=== PATIENT | female | born 1955 | race Caucasian/White ===

== ENCOUNTER 2017-10-09 11:32 | Inpatient (IN) | payer OTHER ==
[2017-10-09 12:01] VITALS: BMI 35.8
--- NOTE | 2017-10-09 13:48 | HP ---
CIWA Score - CIWA Score Nausea/Vomitin Muscle Tremors: 4-Moderate,w/Arms Extend Anxiety: 4-Mod. Anxious/Guarded Agitation: 3 Paroxysmal Sweats: No Perspiration Orientation: 1-Uncertain about Date Tacttile Disturbances: 0-None Auditory Disturbances: 0-None Visual Disturbances: 0-None Headache: 0-None Present CIWA-Ar Total Score: 15 Admission ROS BHS - HPI Chief Complaint: "i am tired of the xanax, tired of leaving like this" Allergies/Adverse Reactions: Allergies Allergy/AdvReac Type Severity Reaction Status Date / Time Penicillins Allergy Verified 10/09/17 12:14 History of Present Illness: 62 y/o female with a 8 year history of xanax addiction presents requesting for detox. This is pt's first time at [facility] but completed detox february 2017 at [facility]. Hx of bipolar, depression and Anxiety but denies medical hx. Denies prior or current SI Exam Limitations: No Limitations - Ebola screening Have you traveled outside of the country in the last 21 days: No (N) Have you had contact with anyone from an Ebola affected area: No Have you been sick,other than usual withdrawal symptoms: No Do you have a fever: No - Review of Systems Constitutional: No Symptoms Reported EENT: reports: Recent change in vision (R macular degenaration; wears glasses), Hearing Loss (gradual), Dental Problems (missing teeth) Respiratory: reports: No Symptoms reported Cardiac: reports: No Symptoms Reported, Palpitations (sometimes, because of anxiety) GI: reports: No Symptoms Reported : reports: No Symptoms Reported Musculoskeletal: reports: Back Pain (chronic- from 2 falls) Integumentary: reports: No Symptoms Reported Neuro: reports: Unsteady Gait Endocrine: reports: No Symptoms Reported Hematology: reports: No Symptoms Reported Psychiatric: reports: Mood/Affect Appropiate, Anxious Other Systems: Reviewed and Negative Patient History - Patient Medical History Hx Anemia: Yes Hx Asthma: No Hx Chronic Obstructive Pulmonary Disease (COPD): No Hx Cancer: Yes (Breast CA, had measectomy in 2015) Hx Cardiac Disorders: No Hx Congestive Heart Failure: No Hx Hypertension: No Hx Pacemaker: No HX Cerebrovascular Accident: No Hx Seizures: No Hx Dementia: No Hx Diabetes: No Hx Gastrointestinal Disorders: No Hx Liver Disease: No Hx Genitourinary Disorders: No Hx Sexually Transmitted Disorders: No Hx Renal Disease (ESRD): No Hx Thyroid Disease: No Hx Human Immunodeficiency Virus (HIV): No Hx Hepatitis C: No Hx Depression: Yes (Seroquel, Citalopram) Hx Suicide Attempt: No Hx Bipolar Disorder: Yes (ON Depakote, lamictal, ) Hx Schizophrenia: No - Patient Surgical History Past Surgical History: Yes Hx Neurologic Surgery: No Hx Cataract Extraction: No Hx Cardiac Surgery: No Hx Lung Surgery: No Hx Breast Surgery: Yes (MASTECTOMY -L breast-2014) Hx Breast Biopsy: No Hx Abdominal Surgery: No Hx Appendectomy: No Hx Cholecystectomy: No Hx Genitourinary Surgery: No Hx Section: No Hx Orthopedic Surgery: No Anesthesia Reaction: No - PPD History Previous Implant?: Yes Documented Results: Negative w/o proof Implanted On Prior [facility] Admission?: No PPD to be Administered?: Yes - Reproductive History Patient is a Female of Child Bearing Age (11 -55 yrs old): No - Smoking Cessation Smoking history: Current every day smoker Aproximately how many cigarettes per day: 20 Hx Chewing Tobacco Use: No Initiated information on smoking cessation: Yes 'Breaking Loose' booklet given: 10/09/17 - Substance & Tx. History Hx Alcohol Use: No Hx Substance Use: Yes Substance Use Type: Tranquilizers Hx Substance Use Treatment: Yes - Substances Abused Alprazolam (Xanax) Route: Oral Frequency: Daily Amount used: 14mg (7 tabs) Age of first use: 54 Date of Last Use: 10/09/17 Family Disease History - Family Disease History Family Disease History: Diabetes: Father (), CA: Grandparent (Breast CA) Admission Physical Exam S - Vital Signs Vital Signs: Vital Signs - 24 hr 10/09/17 11:59 Temperature 97.2 F L Pulse Rate 74 Respiratory 21 Rate Blood Pressure 154/98 - Physical General Appearance: Yes: Moderate Distress, Anxious HEENTM: Yes: Within Normal Limits Respiratory: Yes: Lungs Clear, Normal Breath Sounds Neck: Yes: No masses,lesions,Nodules, Trachea in good position Breast: Yes: Breast Exam Deferred Cardiology: Yes: Regular Rate Abdominal: Yes: Non Tender, Distended Genitourinary: Yes: Within Normal Limits Back: Yes: Normal Inspection Musculoskeletal: Yes: Other (unsteady gait) Extremities: Yes: Normal Capillary Refill, Normal Inspection, Normal Range of Motion Neurological: Yes: Alert Integumentary: Yes: Normal Color Lymphatic: Yes: Within Normal Limits - Diagnostic (1) Sedative, hypnotic or anxiolytic dependence, uncomplicated Current Visit: Yes Status: Acute (2) Anxiety Current Visit: Yes Status: Chronic (3) Bipolar 1 disorder, depressed Current Visit: Yes Status: Suspected (4) Dehydration Current Visit: Yes Status: Suspected Cleared for Admission [facility] - Detox or Rehab [facility] Level of Care: Medically Managed Detox Regimen/Protocol: Valium [facility] Breath Alcohol Content Breath Alcohol Content: 0 Urine Pregancy Test - Result Urine Test Results: Negative- NO Line Present Urine Drug Screen - Results Drug Screen Negative: No Urine Drug Screen Results: BZO-Benzodiazepines
[2017-10-09] MEDS ORDERED: MAGNESIUM HYDROX 2400MG/30ML ORAL SUSPENSION 30 ML CUP PO PRN (14:21)
[2017-10-09] MEDS ORDERED: IBUPROFEN 400 MG TABLET (FP) PO PRN (14:21)
[2017-10-09] MEDS ORDERED: guaiFENesin/D-METHORPHAN HB 10 ML UNIT-DOSE CUPS PO PRN (14:21)
[2017-10-09] MEDS ORDERED: MAGNESIUM CITRATE 300 ML BOTTLE PO PRN (14:21)
[2017-10-09] MEDS ORDERED: ACETAMINOPHEN 325 MG TABLET (FP) PO PRN (14:21)
[2017-10-09] MEDS ORDERED: LOPERAMIDE HCL 2 MG CAPSULE PO PRN (14:21)
[2017-10-09] MEDS ORDERED: P-EPHED 60MG/TRIPROLIDI 2.5MG TABLET PO PRN (14:21)
[2017-10-09] MEDS ORDERED: MAG HYDROX/AL HYDROX/SIMETH 30 ML UNIT-DOSE CUP PO PRN (14:21)
[2017-10-09] MEDS ORDERED: MENTHOL/PHENOL 1 EACH UD MM PRN (14:21)
[2017-10-09] MEDS ORDERED: diazePAM 5 MG TABLET PO ONE (14:21)
[2017-10-09] MEDS ORDERED: NICOTINE POLACRILEX 2 MG GUM BC PRN (14:21)
[2017-10-09] MEDS: diazePAM 5 MG TABLET PO SCH ×2 (15:16→22:17)
[2017-10-09] MEDS: NICOTINE 21 MG/24 HOURS TOPICAL PATCH TD SCH (15:17)
[2017-10-09 16:01] LABS: URINE APPEARANCE CLEAR; URINE BILIRUBIN NEGATIVE (<2.0 mg/dL); URINE COLOR YELLOW; URINE GLUCOSE (UA) NEGATIVE (NEGATIVE); URINE KETONE TRACE (NEGATIVE); URINE LEUK ESTERASE TRACE (NEGATIVE); URINE NITRITE NEGATIVE (NEGATIVE); URINE PROTEIN NEGATIVE (NEGATIVE); URINE UROBILINOGEN NEGATIVE mg/dL (0.2-1.0)
[2017-10-09 16:52] LABS: EPI CELLS RARE /HPF (FEW)
--- NOTE | 2017-10-09 20:25 | PN ---
[facility] Progress Note Note: Psychiatrist community service organization director note: Patient admitrted to [facility] for detox, as per nursing reports his preadmission medications are: Seroquel 50mg po bid Depakote 500mg po tid Lamictal 25mg po bid Celexa 20mg poqd Patient started on preadmission medications, Depakote l blood level in am ordered as well.
[2017-10-09] MEDS ORDERED: MELATONIN 5 MG TABLETS PO PRN (22:00)
[2017-10-09] MEDS: THIAMINE HCL 100 MG TABLET (FP) PO SCH (22:16)
[2017-10-09] MEDS: DIVALPROEX SODIUM 500 MG TABLET E.C. PO SCH (22:16)
[2017-10-09] MEDS: lamoTRIgine 25 MG TABLET PO SCH (22:16)
[2017-10-09] MEDS: QUEtiapine FUMARATE 50 MG TABLET PO SCH (22:17)
[2017-10-10] MEDS: diazePAM 5 MG TABLET PO SCH ×3 (05:19→21:48)
[2017-10-10] MEDS: DIVALPROEX SODIUM 500 MG TABLET E.C. PO SCH ×3 (05:19→21:48)
[2017-10-10] MEDS: diazePAM 5 MG TABLET PO PRN ×3 (07:48→17:29)
--- NOTE | 2017-10-10 09:53 | CONSULT ---
[facility] Psychiatric Consult - Data Date of interview: 10/10/17 Admission source: [facility] Identifying data: This is 62 years old female, mother of four, lioving at Longterm, with a 8 year history of xanax and Nicotine addiction presents at [facility] requesting for detoxification, reports withdrawal symptoms. Patient reports history of Bipolar Disorder with most eent psychiatric admission on about 8 years ago. Substance Abuse History: - Smoking Cessation. Smoking history: Current every day smoker. Aproximately how many cigarettes per day: 20. Hx Chewing Tobacco Use: No. Initiated information on smoking cessation: Yes. 'Breaking Loose' booklet given: 10/09/17. - Substance & Tx. History. Hx Alcohol Use: No. Hx Substance Use: Yes. Substance Use Type: Tranquilizers. Hx Substance Use Treatment: Yes. - Substances Abused. Alprazolam (Xanax). Route: Oral. Frequency: Daily. Amount used: 14mg (7 tabs). Age of first use: 54. Date of Last Use: 10/09/17 Medical History: Denies significant mecical problems Psychiatric History: Patient reports history of Bipolar Disorder with most eent psychiatric admission on about 8 years ago, denies suicidal and homicidal histopry. Reports taking prior, to admission: Depakote 500mg po TID. Seroquel 50mg po bid. Lamictal 25mg po bid. Celexa 20mg poqd Physical/Sexual Abuse/Trauma History: Denies Additional Comment: Depakote 500mg po TID. Seroquel 50mg po bid. Lamictal 25mg po bid. Celexa 20mg poqd Mental Status Exam - Mental Status Exam Alert and Oriented to: Person Cognitive Function: Fair Patient Appearance: Well Groomed Mood: Apprehensive Affect: Mood Congruent Patient Behavior: Cooperative Speech Pattern: Appropriate Voice Loudness: Normal Thought Process: Goal Oriented Thought Disorder: Being Controlled Hallucinations: Denies Suicidal Ideation: Denies Homicidal Ideation: Denies Insight/Judgement: Fair Sleep: Difficulty falling asleep Appetite: Weight loss Muscle strength/Tone: Mild Hypotonicity Gait/Station: Deferred Additional Comments: Depakote 500mg po TID. Seroquel 50mg po bid. Lamictal 25mg po bid. Celexa 20mg poqd Psychiatric Findings - Problem List ([place] 1, 2,3) (1) Nicotine dependence Current Visit: Yes Status: Acute (2) Sedative, hypnotic or anxiolytic dependence, uncomplicated Current Visit: Yes Status: Acute (3) Bipolar 1 disorder, depressed Current Visit: Yes Status: Suspected - Initial Treatment Plan Initial Treatment Plan: Depakote 500mg po TID. Seroquel 50mg po bid. Lamictal 25mg po bid. Celexa 20mg poqd
--- NOTE | 2017-10-10 10:07 | PN ---
[facility] Progress Note Note: Psychiatrixt telephone recorder notes: On 10/09/17 as per nursing report loi was admirtted to [facility] for detoxification after abusing Xanax and Nicotine. Patient suffers Bipolar diusorder and taking prior to admission: Depakote 500mg po TID Seroquel 50mg po bid Lamictal 25mg po bid Celexa 20mg poqd Medication order was issues, in addition Depakot blood level ion am was ordered.
--- NOTE | 2017-10-10 10:14 | PN ---
S CIWA - CIWA Score Nausea/Vomitin Muscle Tremors: 3 Anxiety: 3 Agitation: 2 Paroxysmal Sweats: 1-Minimal Palms Moist Orientation: 0-Oriented Tacttile Disturbances: 1-Very Mild Itch/Numbness Auditory Disturbances: 1-Very Mild Visual Disturbances: 0-None Headache: 2-Mild CIWA-Ar Total Score: 16 BHS Progress Note (SOAP) Subjective: ALERT,IRRITABLE,ANXIOUS,INTERRUPTED SLEEP,TREMOR, Objective: 10/10/17 10:11 Vital Signs Temperature 95.9 F L 10/10/17 09:50 Pulse Rate 86 10/10/17 09:50 Respiratory Rate 17 10/10/17 09:50 Blood Pressure 125/86 10/10/17 09:50 O2 Sat by Pulse Oximetry (%) EKG SINUS RHYTHM WITH FIRST DEGREE AV BLOCK PROLONG QT 396/442 NO CHEST PAIN,NO SOB,NO DIZZINESS Laboratory Last Values Urine Color Yellow 10/09/17 14:43 Urine Appearance Clear 10/09/17 14:43 Urine pH 7.0 (5.0-8.0) 10/09/17 14:43 Ur Specific [place] 1.014 (1.001-1.035) 10/09/17 14:43 Urine Protein Negative (NEGATIVE) 10/09/17 14:43 Urine Glucose (UA) Negative (NEGATIVE) 10/09/17 14:43 Urine Ketones Trace (NEGATIVE) H 10/09/17 14:43 Urine Blood 1+ (NEGATIVE) H 10/09/17 14:43 Urine Nitrite Negative (NEGATIVE) 10/09/17 14:43 Urine Bilirubin Negative (<2.0 mg/dL) 10/09/17 14:43 Urine Urobilinogen Negative mg/dL (0.2-1.0) 10/09/17 14:43 Ur Leukocyte Esterase Trace (NEGATIVE) 10/09/17 14:43 Urine WBC (Auto) 1 /hpf (3-5) 10/09/17 14:43 Urine RBC (Auto) <1 /hpf (0-3) 10/09/17 14:43 Ur Epithelial Cells Rare /HPF (FEW) 10/09/17 14:43 Assessment: 10/10/17 10:13 WITHDRAWAL SYMPTOM Plan: CONTINUE DETOX
[2017-10-10] MEDS: PRENATAL VITAMINS W/ FOLIC ACID TABLET (FP) PO SCH (10:38)
[2017-10-10] MEDS: QUEtiapine FUMARATE 50 MG TABLET PO SCH ×2 (10:38→21:48)
[2017-10-10] MEDS: lamoTRIgine 25 MG TABLET PO SCH ×2 (10:38→21:48)
[2017-10-10] MEDS: CITALOPRAM HYDROBROMIDE 20 MG TABLET (FP) PO SCH (10:38)
[2017-10-10] MEDS: NICOTINE 21 MG/24 HOURS TOPICAL PATCH TD SCH (10:39)
[2017-10-10 10:52] LABS: CHLORIDE 103 mmol/L (98-107); POTASSIUM 4.6 mmol/L (3.5-5.1); SODIUM 137 mmol/L (136-145)
[2017-10-10 10:57] LABS: HEMOGLOBIN 16.3 GM/dL (10.7-15.3); MCH 33.1 pg (25.7-33.7); MCHC 34.6 g/dl (32.0-36.0); MEAN CELL VOLUME 95.6 fl (80-96); MEAN PLT VOLUME 7.7 fl (7.5-11.1); PLATELET COUNT 236 K/MM3 (134-434); RBC 4.91 M/mm3 (3.60-5.2); RDW 13.2 % (11.6-15.6); WHITE BLOOD COUNT 6.3 K/mm3 (4.0-10.0)
[2017-10-10 11:00] LABS: ALBUMIN 3.6 g/dl (3.4-5.0); ALK PHOS 57 U/L (45-117); ANION GAP 6 (8-16); BILIRUBIN,TOTAL 0.4 mg/dL (0.2-1.0); BLOOD UREA NITROGEN 19 mg/dL (7-18); CALCIUM 8.7 mg/dL (8.5-10.1); CO2 28 mmol/L (21-32); CREATININE 0.8 mg/dL (0.55-1.02); GLUCOSE,RANDOM 133 mg/dL (74-106); SGOT/AST 10 U/L (15-37); SGPT/ALT 20 U/L (12-78); TOT PROT 6.9 g/dl (6.4-8.2)
--- NOTE | 2017-10-10 18:07 | EKG ---
Test Reason : Blood Pressure : / mmHG Vent. Rate : 075 BPM Atrial Rate : 075 BPM P-R Int : 346 ms QRS Dur : 076 ms QT Int : 396 ms P-R-T Axes : 049 -22 -26 degrees QTc Int : 442 ms SINUS RHYTHM WITH 1ST DEGREE A-V BLOCK SEPTAL INFARCT (CITED ON OR BEFORE 09-OCT-2017) ABNORMAL ECG WHEN COMPARED WITH ECG OF 09-OCT-2017 15:51, NO SIGNIFICANT CHANGE WAS FOUND Confirmed by LEE VIEYRA MD ([id number]) on 10/10/2017 6:07:28 PM Referred By: Confirmed By:LEE VIEYRA MD
[2017-10-10] MEDS: THIAMINE HCL 100 MG TABLET (FP) PO SCH (21:50)
--- NOTE | 2017-10-10 23:53 | EKG ---
Test Reason : Blood Pressure : / mmHG Vent. Rate : 071 BPM Atrial Rate : 071 BPM P-R Int : 286 ms QRS Dur : 078 ms QT Int : 408 ms P-R-T Axes : 063 -22 -08 degrees QTc Int : 443 ms SINUS RHYTHM WITH 1ST DEGREE A-V BLOCK SEPTAL INFARCT , AGE UNDETERMINED ABNORMAL ECG NO PREVIOUS ECGS AVAILABLE Confirmed by LEE VIEYRA MD ([id number]) on 10/10/2017 11:52:40 PM Referred By: Confirmed By:LEE VIEYRA MD
[2017-10-11] MEDS: hydrOXYzine PAMOATE 50 MG CAPSULE (FP) PO PRN (02:01)
[2017-10-11] MEDS: diazePAM 5 MG TABLET PO PRN ×4 (04:07→18:07)
[2017-10-11] MEDS: DIVALPROEX SODIUM 500 MG TABLET E.C. PO SCH ×3 (07:29→22:15)
--- NOTE | 2017-10-11 09:46 | PN ---
S CIWA - CIWA Score Nausea/Vomitin Muscle Tremors: 3 Anxiety: 3 Agitation: 3 Paroxysmal Sweats: 1-Minimal Palms Moist Orientation: 0-Oriented Tacttile Disturbances: 1-Very Mild Itch/Numbness Auditory Disturbances: 1-Very Mild Visual Disturbances: 0-None Headache: 2-Mild CIWA-Ar Total Score: 17 BHS Progress Note (SOAP) Subjective: ALERT,IRRITABLE,ANXIOUS,INTERRUPTED SLEEP,TREMOR Objective: 10/11/17 09:45 Vital Signs Temperature 96.9 F L 10/11/17 09:08 Pulse Rate 77 10/11/17 09:08 Respiratory Rate 18 10/11/17 09:08 Blood Pressure 132/75 10/11/17 09:08 O2 Sat by Pulse Oximetry (%) Vital Signs Temperature 96.9 F L 10/11/17 09:08 Pulse Rate 77 10/11/17 09:08 Respiratory Rate 18 10/11/17 09:08 Blood Pressure 132/75 10/11/17 09:08 O2 Sat by Pulse Oximetry (%) 10/11/17 09:45 Laboratory Last Values WBC 6.3 K/mm3 (4.0-10.0) 10/10/17 07:00 RBC 4.91 M/mm3 (3.60-5.2) 10/10/17 07:00 Hgb 16.3 GM/dL (10.7-15.3) H 10/10/17 07:00 Hct 47.0 % (32.4-45.2) H 10/10/17 07:00 MCV 95.6 fl (80-96) 10/10/17 07:00 MCH 33.1 pg (25.7-33.7) 10/10/17 07:00 MCHC 34.6 g/dl (32.0-36.0) 10/10/17 07:00 RDW 13.2 % (11.6-15.6) 10/10/17 07:00 Plt Count 236 K/MM3 (134-434) 10/10/17 07:00 MPV 7.7 fl (7.5-11.1) 10/10/17 07:00 Sodium 137 mmol/L (136-145) 10/10/17 07:00 Potassium 4.6 mmol/L (3.5-5.1) 10/10/17 07:00 Chloride 103 mmol/L (98-107) 10/10/17 07:00 Carbon Dioxide 28 mmol/L (21-32) 10/10/17 07:00 Anion Gap 6 (8-16) L 10/10/17 07:00 BUN 19 mg/dL (7-18) H 10/10/17 07:00 Creatinine 0.8 mg/dL (0.55-1.02) 10/10/17 07:00 Creat Clearance w eGFR > 60 (>60) 10/10/17 07:00 Random Glucose 133 mg/dL (74-106) H 10/10/17 07:00 Calcium 8.7 mg/dL (8.5-10.1) 10/10/17 07:00 Total Bilirubin 0.4 mg/dL (0.2-1.0) 10/10/17 07:00 AST 10 U/L (15-37) L 10/10/17 07:00 ALT 20 U/L (12-78) 10/10/17 07:00 Alkaline Phosphatase 57 U/L (45-117) 10/10/17 07:00 Total Protein 6.9 g/dl (6.4-8.2) 10/10/17 07:00 Albumin 3.6 g/dl (3.4-5.0) 10/10/17 07:00 Urine Color Yellow 10/09/17 14:43 Urine Appearance Clear 10/09/17 14:43 Urine pH 7.0 (5.0-8.0) 10/09/17 14:43 Ur Specific [place] 1.014 (1.001-1.035) 10/09/17 14:43 Urine Protein Negative (NEGATIVE) 10/09/17 14:43 Urine Glucose (UA) Negative (NEGATIVE) 10/09/17 14:43 Urine Ketones Trace (NEGATIVE) H 10/09/17 14:43 Urine Blood 1+ (NEGATIVE) H 10/09/17 14:43 Urine Nitrite Negative (NEGATIVE) 10/09/17 14:43 Urine Bilirubin Negative (<2.0 mg/dL) 10/09/17 14:43 Urine Urobilinogen Negative mg/dL (0.2-1.0) 10/09/17 14:43 Ur Leukocyte Esterase Trace (NEGATIVE) 10/09/17 14:43 Urine WBC (Auto) 1 /hpf (3-5) 10/09/17 14:43 Urine RBC (Auto) <1 /hpf (0-3) 10/09/17 14:43 Ur Epithelial Cells Rare /HPF (FEW) 10/09/17 14:43 Valproic Acid 59.845 ug/ml (50-100) 10/10/17 07:00 RPR Titer Nonreactive (NONREACTIVE) 10/10/17 07:00 Assessment: 10/11/17 09:45 WITHDRAWAL SYMPTOM Plan: CONTINUE DETOX
[2017-10-11] MEDS: QUEtiapine FUMARATE 50 MG TABLET PO SCH ×2 (11:01→22:15)
[2017-10-11] MEDS: CITALOPRAM HYDROBROMIDE 20 MG TABLET (FP) PO SCH (11:01)
[2017-10-11] MEDS: lamoTRIgine 25 MG TABLET PO SCH ×2 (11:01→22:14)
[2017-10-11] MEDS: PRENATAL VITAMINS W/ FOLIC ACID TABLET (FP) PO SCH (11:01)
[2017-10-11] MEDS: diazePAM 5 MG TABLET PO SCH ×2 (11:02→22:14)
[2017-10-11] MEDS: NICOTINE 21 MG/24 HOURS TOPICAL PATCH TD SCH (11:02)
[2017-10-11] MEDS: THIAMINE HCL 100 MG TABLET (FP) PO SCH (22:15)
[2017-10-12] MEDS: diazePAM 5 MG TABLET PO PRN (06:45)
[2017-10-12] MEDS: DIVALPROEX SODIUM 500 MG TABLET E.C. PO SCH ×3 (06:45→22:14)
[2017-10-12] MEDS: hydrOXYzine PAMOATE 50 MG CAPSULE (FP) PO PRN ×2 (08:13→16:13)
--- NOTE | 2017-10-12 10:12 | PN ---
BHS Progress Note (SOAP) Subjective: ALERT,IRRITABLE,ANXIOUS,INTERRUPTED SLEEP Objective: 10/12/17 10:11 Vital Signs Temperature 98.1 F 10/12/17 09:09 Pulse Rate 93 H 10/12/17 09:09 Respiratory Rate 16 10/12/17 09:09 Blood Pressure 115/67 10/12/17 09:09 O2 Sat by Pulse Oximetry (%) Assessment: 10/12/17 10:12 WITHDRAWAL SYMPTOM Plan: CONTINUE DETOX,DISCHARGE IN AM
[2017-10-12] MEDS: QUEtiapine FUMARATE 50 MG TABLET PO SCH ×2 (10:15→22:15)
[2017-10-12] MEDS: CITALOPRAM HYDROBROMIDE 20 MG TABLET (FP) PO SCH (10:15)
[2017-10-12] MEDS: PRENATAL VITAMINS W/ FOLIC ACID TABLET (FP) PO SCH (10:15)
[2017-10-12] MEDS: diazePAM 5 MG TABLET PO SCH ×2 (10:15→22:14)
[2017-10-12] MEDS: NICOTINE 21 MG/24 HOURS TOPICAL PATCH TD SCH (10:15)
[2017-10-12] MEDS: lamoTRIgine 25 MG TABLET PO SCH ×2 (10:15→22:14)
--- NOTE | 2017-10-12 18:04 | PN ---
Psychiatric Progress Note Vital Signs: Vital Signs Period Temp Pulse Resp BP Sys/Meléndez Pulse Ox Last 24 Hr 97.6 F-98.2 F 68-104 16-18 114-132/62-80 Date of Session: 10/12/17 Chief Complaint:: " I am anxious.I need some ativan to calm down ". HPI: Day 4 of detoxification treatment for benzodiazepine dependence.Patient is a 62 y/o female who is also addressing bipolar disorder.Hospital course has remained benign until Ms Resendiz started presenting with anxiety symptoms and requested a meeting with the covering psychiatrist. ROS: Unremarkable.Patient is cognitively sound,ambulatory,independent,visible on the unit and clearly NOT presenting any sign of distress. Current Medications: Active Medications Generic Name Dose Route Start Last Admin Trade Name Freq PRN Reason Stop Dose Admin Acetaminophen 650 mg 10/09/17 14:21 Tylenol - PO Q4H PRN FEVER Al Hydroxide/Mg Hydroxide 30 ml 10/09/17 14:21 Mylanta Oral Suspension - PO Q6H PRN DYSPEPSIA Citalopram Hydrobromide 20 mg 10/10/17 10:00 10/12/17 10:15 Celexa - PO 20 mg DAILY RAVI Administration Diazepam 5 mg 10/11/17 10:00 10/12/17 10:15 Valium - PO 10/12/17 22:01 5 mg BID RAVI Administration Diazepam 5 mg 10/13/17 10:00 Valium - PO 10/13/17 10:01 DAILY RAVI Divalproex Sodium 500 mg 10/09/17 22:00 10/12/17 14:55 Depakote - PO 500 mg TID RAVI Administration Eucalyptus/Menthol/Phenol/Sorbitol 1 each 10/09/17 14:21 Cepastat Lozenge - MM Q4H PRN SORE THROAT Guaifenesin 10 ml 10/09/17 14:21 Robitussin Dm - PO Q6H PRN COUGH Hydroxyzine Pamoate 50 mg 10/09/17 14:21 10/12/17 16:13 Vistaril - PO 50 mg Q4H PRN Administration AGITATION Ibuprofen 400 mg 10/09/17 14:21 Motrin - PO Q6H PRN PAIN LEVEL 4-6 Lamotrigine 25 mg 10/09/17 22:00 10/12/17 10:15 Lamictal - PO 25 mg BID RAVI Administration Loperamide HCl 4 mg 10/09/17 14:21 Imodium - PO Q6H PRN DIARRHEA Magnesium Citrate 300 ml 10/09/17 14:21 Citroma - PO Q48H PRN CONSTIPATION Magnesium Hydroxide 30 ml 10/09/17 14:21 Milk Of Magnesia - PO DAILY PRN CONSTIPATION Melatonin 5 mg 10/09/17 22:00 Melatonin PO HS PRN INSOMNIA Nicotine 21 mg 10/09/17 14:30 10/12/17 10:15 Nicoderm Patch - TD Not Given DAILY RAVI Nicotine Polacrilex 2 mg 10/09/17 14:21 Nicorette Gum - BC Q2H PRN NICOTINE REPLACEMENT RX Multivit/Folic Acid/Iron 1 tab 10/10/17 10:00 10/12/17 10:15 Vitamins (Sjr) - PO 1 tab DAILY RAVI Administration Pseudoephedrine/Triprolidine 1 combo 10/09/17 14:21 Actifed - PO TID PRN NASAL CONGESTION Quetiapine Fumarate 50 mg 10/09/17 22:00 10/12/17 10:15 Seroquel - PO 50 mg BID RAVI Administration Thiamine HCl 100 mg 10/09/17 22:00 10/11/17 22:15 Vitamin B1 - PO 100 mg HS RAVI Administration Medication(s) Change(s): No clinical justification for changes.Medications reviewed.Noted combination of lamotrigine + valproate.The patient is made aware of risk/benefits of these drugs.Informed, in particular, of the potential for Danielle-Armando syndrome and advised to report any occurrence of skin rash to staff.Patient agrees to follow that recommendation.Other issues were also revisited,such as the risk of hair loss,blood dyscrasias,liver dysfunction, weight gain and oversedation.Ms Martín leonwledges good tolerability to this regimen.Medications were verified via review of recent pharmacy claims (09/30 + + 10/06/17 at [facility]).Scripts for alprazolam confirmed. Current Side Effect: No Lab tests ordered: No Lab tests reviewed: Yes (valproic acid level = 59.8 (within normal range) ; LFTS /CBC: unremarkable) Provider note:: Chart reviewed.Dr Ayoub's progress notes are read and appreciated.Met with patient. No acute issues.Ms Resendiz is clearly medication- seeking.Unambiguously in quest of addition of lorazepam or alprazolam to the regimen.Symptoms (shaking,trembling,pacing) stopped as soon as it became clear to the patient that her request will NOT be gratified.Instead,Ms Resendiz is provided with teachings about ways to control anxiety symptoms,available medications (other than benzodiazepines) and the risks inherent to overutilization of sedative/anxiolytic drugs.Patient is receptive to the information.Calmed down and returned to her daily routine.Benign hospital course.The patient is at her baseline. Mental Status Exam - Mental Status Exam Alert and Oriented to: Time, Place, Person Cognitive Function: Good Patient Appearance: Well Groomed Mood: Anxious (mildly apprehensive) Affect: Appropriate, Normal Range Patient Behavior: Appropriate, Cooperative Speech Pattern: Clear, Appropriate Voice Loudness: Normal Thought Process: Intact, Goal Oriented Thought Disorder: Not Present Hallucinations: Denies Suicidal Ideation: Denies Homicidal Ideation: Denies Insight/Judgement: Fair Sleep: Well Appetite: Good Muscle strength/Tone: Normal Gait/Station: Normal Psychiatric Treatment Plan - Problem List (1) Sedative, hypnotic or anxiolytic dependence, uncomplicated Comment: . (2) Nicotine dependence Comment: .
[2017-10-12] MEDS: THIAMINE HCL 100 MG TABLET (FP) PO SCH (22:15)
[2017-10-13] MEDS: DIVALPROEX SODIUM 500 MG TABLET E.C. PO SCH (05:09)
--- NOTE | 2017-10-13 08:19 | PN ---
S Progress Note (SOAP) Subjective: ALERT,NO COMPLAINT Objective: 10/13/17 08:18 Vital Signs Temperature 97.9 F 10/13/17 05:57 Pulse Rate 67 10/13/17 05:57 Respiratory Rate 18 10/13/17 05:57 Blood Pressure 145/64 10/13/17 05:57 O2 Sat by Pulse Oximetry (%) Assessment: 10/13/17 08:18 DETOX COMPLETED,NO WITHDRAWAL SYMPTOM Plan: DISCHARGE TODAY,FOLLOW UP WITH AFTER CARE PROGRAM ARRANGEMENT
--- NOTE | 2017-10-13 08:25 | DS ---
[facility] Detox Discharge Summary Admission Date: 10/09/17 Discharge Date: 10/13/17 - History Present History: Sedative Dependence Additional Comments: FOLLOW UP WITH AFTER CARE PROGRAM ARRANGEMENT Pertinent Past History: BIPOLAR 1 DISORDER ANXIETY - Physical Exam Results Vital Signs: Vital Signs Temperature 97.9 F 10/13/17 05:57 Pulse Rate 67 10/13/17 05:57 Respiratory Rate 18 10/13/17 05:57 Blood Pressure 145/64 10/13/17 05:57 O2 Sat by Pulse Oximetry (%) Pertinent Admission Physical Exam Findings: WITHDRAWAL SIGNS AND SYMPTOM - Treatment Hospital Course: Detox Protocol Followed, Detoxed Safely, Responded well, Discharged Condition Good Patient has Accepted a Rehab Referral to: DECLINED - Medication Discharge Medications: Ambulatory Orders Citalopram Hydrobromide [Citalopram HBr] 20 mg PO DAILY 10/09/17 Divalproex [Depakote -] 500 mg PO TID 10/09/17 Lamotrigine [Lamictal -] 25 mg PO BID 10/09/17 Quetiapine Fumarate [Seroquel -] 50 mg PO BID 10/09/17 - Diagnosis (1) Sedative, hypnotic or anxiolytic dependence, uncomplicated Current Visit: Yes Status: Acute (2) Nicotine dependence Current Visit: Yes Status: Acute (3) Anxiety Current Visit: Yes Status: Chronic (4) Bipolar 1 disorder, depressed Current Visit: Yes Status: Suspected (5) Dehydration Current Visit: Yes Status: Suspected - AMA Did Patient Leave Against Medical Advice: No
[2017-10-13] MEDS: PRENATAL VITAMINS W/ FOLIC ACID TABLET (FP) PO SCH (09:12)
[2017-10-13] MEDS: lamoTRIgine 25 MG TABLET PO SCH (09:12)
[2017-10-13] MEDS: QUEtiapine FUMARATE 50 MG TABLET PO SCH (09:12)
[2017-10-13] MEDS: CITALOPRAM HYDROBROMIDE 20 MG TABLET (FP) PO SCH (09:12)
[2017-10-13 09:13] VITALS: BP 136/74; PULSE 111; TEMP 97.7
[2017-10-13] MEDS ORDERED: diazePAM 5 MG TABLET PO SCH (10:00)
== END 2017-10-13 09:12 | disposition home or self-care (01) | DRG 897 ==
LOC: YASAS 11:32 → Y6N 14:26
PROVIDERS: ADMIT Surgery; ATTEND Surgery
PROC: HZ2ZZZZ Detoxification Services for Substance Abuse Treatment (ICD-10-PCS; principal; 2017-10-09)
DX: F13.230 Sedative, hypnotic or anxiolytic dependence with withdrawal, uncomplicated (principal); F31.89 Other bipolar disorder; F17.210 Nicotine dependence, cigarettes, uncomplicated; F41.9 Anxiety disorder, unspecified; E86.0 Dehydration
CPT/HCPCS: 36415; 80053; 80164; 81003; 81015; 85027; 86593; 93005; 93010

== ENCOUNTER 2020-07-29 12:40 | Inpatient (IN) | payer OTHER ==
[2020-07-29 15:09] VITALS: BMI 32.3
[2020-07-29] MEDS ORDERED: NICOTINE POLACRILEX 2 MG GUM BUC PRN (15:09)
[2020-07-29] MEDS ORDERED: BISMUTH SUBSALICYLATE 524 MG/30 ML UD PO PRN (15:09)
[2020-07-29] MEDS ORDERED: ONDANSETRON *ODT* 4 MG TABLET SL PRN (15:09)
[2020-07-29] MEDS ORDERED: ACETAMINOPHEN 325 MG TABLET (FP) PO PRN (15:09)
[2020-07-29] MEDS ORDERED: MENTHOL/PHENOL 1 EACH UD MM PRN (15:09)
[2020-07-29] MEDS ORDERED: MAGNESIUM CITRATE 300 ML BOTTLE PO PRN (15:09)
[2020-07-29] MEDS ORDERED: MAG HYDROX/AL HYDROX/SIMETH 30 ML UNIT-DOSE CUP PO PRN (15:09)
[2020-07-29] MEDS ORDERED: MAGNESIUM HYDROX 2400MG/30ML ORAL SUSPENSION 30 ML CUP PO PRN (15:09)
[2020-07-29] MEDS ORDERED: diazePAM 5 MG TABLET ONE (16:12)
[2020-07-29] MEDS: diazePAM 5 MG TABLET PO SCH ×2 (16:15→23:09)
[2020-07-29] MEDS: METHOCARBAMOL 500 MG TABLET PO PRN (17:23)
[2020-07-29] MEDS: hydrOXYzine PAMOATE 25 MG CAPSULE (FP) PO SCH ×2 (17:23→23:08)
[2020-07-29] MEDS: PRENATAL VITAMINS W/ FOLIC ACID TABLET (FP) PO SCH (17:51)
[2020-07-29] MEDS: diazePAM 5 MG TABLET PO PRN (18:10)
[2020-07-29] MEDS: DIVALPROEX SODIUM 500 MG TABLET E.C. PO SCH (23:07)
[2020-07-29] MEDS: THIAMINE HCL 100 MG TABLET (FP) PO SCH (23:07)
[2020-07-29] MEDS: MELATONIN 5 MG TABLETS PO SCH (23:07)
[2020-07-29] MEDS: risperiDONE 1 MG TABLET PO SCH (23:08)
[2020-07-30] MEDS: diazePAM 5 MG TABLET PO SCH ×4 (05:11→22:03)
[2020-07-30] MEDS: risperiDONE 1 MG TABLET PO SCH ×3 (05:11→22:03)
[2020-07-30] MEDS: hydrOXYzine PAMOATE 25 MG CAPSULE (FP) PO SCH ×5 (05:11→22:03)
[2020-07-30] MEDS: DIVALPROEX SODIUM 500 MG TABLET E.C. PO SCH ×3 (05:11→22:03)
[2020-07-30] MEDS: IBUPROFEN 400 MG TABLET (FP) PO PRN ×2 (05:15→16:07)
[2020-07-30] MEDS: PRENATAL VITAMINS W/ FOLIC ACID TABLET (FP) PO SCH (10:09)
[2020-07-30 10:28] LABS: HEMATOCRIT 41.3 % (32.4-45.2); HEMOGLOBIN 14.4 GM/dL (10.7-15.3); MCH 34.2 pg (25.7-33.7); MCHC 34.8 g/dl (32.0-36.0); MEAN CELL VOLUME 98.3 fl (80-96); MEAN PLT VOLUME 7.2 fl (7.5-11.1); PLATELET COUNT 290 K/MM3 (134-434); RDW 13.9 % (11.6-15.6); WHITE BLOOD COUNT 6.5 K/mm3 (4.0-10.0)
[2020-07-30 11:06] LABS: POTASSIUM 4.7 mmol/L (3.5-5.1)
[2020-07-30 11:15] LABS: ALBUMIN 3.5 g/dl (3.4-5.0); BLOOD UREA NITROGEN 17.6 mg/dL (7-18)
[2020-07-30 11:18] LABS: CREATININE 0.6 mg/dL (0.55-1.3)
[2020-07-30 11:20] LABS: BILIRUBIN,TOTAL 0.9 mg/dL (0.2-1); TOT PROT 6.5 g/dl (6.4-8.2)
[2020-07-30 11:24] LABS: CALCIUM 9.2 mg/dL (8.5-10.1)
[2020-07-30] MEDS: METHOCARBAMOL 500 MG TABLET PO PRN (11:44)
[2020-07-30] MEDS: diazePAM 5 MG TABLET PO PRN (12:30)
[2020-07-30] MEDS: MELATONIN 5 MG TABLETS PO SCH (22:02)
[2020-07-30] MEDS: THIAMINE HCL 100 MG TABLET (FP) PO SCH (22:03)
[2020-07-31] MEDS: diazePAM 5 MG TABLET PO SCH ×3 (05:09→22:03)
[2020-07-31] MEDS: DIVALPROEX SODIUM 500 MG TABLET E.C. PO SCH ×3 (05:10→22:02)
[2020-07-31] MEDS: risperiDONE 1 MG TABLET PO SCH ×3 (05:10→22:32)
[2020-07-31] MEDS: hydrOXYzine PAMOATE 25 MG CAPSULE (FP) PO SCH ×2 (05:10→09:55)
[2020-07-31] MEDS: diazePAM 5 MG TABLET PO PRN ×3 (07:32→17:00)
[2020-07-31] MEDS: PRENATAL VITAMINS W/ FOLIC ACID TABLET (FP) PO SCH (09:55)
[2020-07-31] MEDS: METHOCARBAMOL 500 MG TABLET PO PRN (09:55)
[2020-07-31] MEDS: IBUPROFEN 400 MG TABLET (FP) PO PRN (09:56)
[2020-07-31] MEDS ORDERED: COLLOIDAL OATMEAL 1 BAR EACH TP PRN (14:15)
[2020-07-31] MEDS ORDERED: AMMONIUM LACTATE 12% LOTION 225 GM BOTTLE TP PRN (14:15)
[2020-07-31] MEDS: NICOTINE 21 MG/24 HOURS TOPICAL PATCH TD SCH (14:59)
[2020-07-31] MEDS: hydrOXYzine PAMOATE 25 MG CAPSULE (FP) PO PRN ×2 (15:19→21:17)
[2020-07-31] MEDS: IBUPROFEN 600 MG TABLET (FP) PO PRN (16:58)
[2020-07-31] MEDS: THIAMINE HCL 100 MG TABLET (FP) PO SCH (22:02)
[2020-07-31] MEDS: MELATONIN 5 MG TABLETS PO SCH (22:03)
[2020-08-01] MEDS: IBUPROFEN 600 MG TABLET (FP) PO PRN ×2 (02:02→16:02)
[2020-08-01] MEDS: diazePAM 5 MG TABLET PO PRN ×3 (02:05→13:11)
[2020-08-01] MEDS: diazePAM 5 MG TABLET PO SCH ×2 (05:40→17:02)
[2020-08-01] MEDS: risperiDONE 1 MG TABLET PO SCH ×3 (05:41→21:09)
[2020-08-01] MEDS: DIVALPROEX SODIUM 500 MG TABLET E.C. PO SCH ×3 (05:41→21:09)
[2020-08-01] MEDS: PRENATAL VITAMINS W/ FOLIC ACID TABLET (FP) PO SCH (10:23)
[2020-08-01] MEDS: NICOTINE 21 MG/24 HOURS TOPICAL PATCH TD SCH (10:23)
[2020-08-01] MEDS: hydrOXYzine PAMOATE 25 MG CAPSULE (FP) PO PRN ×3 (10:24→19:16)
[2020-08-01] MEDS: METHOCARBAMOL 750 MG TAB PO PRN ×2 (12:05→19:16)
[2020-08-01] MEDS: ACETAMINOPHEN 325 MG TABLET (FP) PO PRN (12:05)
[2020-08-01] MEDS: THIAMINE HCL 100 MG TABLET (FP) PO SCH (21:09)
[2020-08-01] MEDS: MELATONIN 5 MG TABLETS PO SCH (21:09)
[2020-08-02] MEDS: hydrOXYzine PAMOATE 25 MG CAPSULE (FP) PO PRN (04:10)
[2020-08-02] MEDS: METHOCARBAMOL 750 MG TAB PO PRN (04:10)
[2020-08-02] MEDS: ACETAMINOPHEN 325 MG TABLET (FP) PO PRN (04:10)
[2020-08-02] MEDS: risperiDONE 1 MG TABLET PO SCH (05:16)
[2020-08-02] MEDS: DIVALPROEX SODIUM 500 MG TABLET E.C. PO SCH (05:16)
[2020-08-02] MEDS ORDERED: diazePAM 5 MG TABLET PO ONE (06:00)
[2020-08-02] MEDS: NICOTINE 21 MG/24 HOURS TOPICAL PATCH TD SCH (09:15)
[2020-08-02] MEDS: PRENATAL VITAMINS W/ FOLIC ACID TABLET (FP) PO SCH (09:15)
[2020-08-02 09:46] VITALS: BP 146/88; PULSE 76; TEMP 97.8
== END 2020-08-02 08:59 | disposition home or self-care (01) | DRG 897 ==
LOC: YASAS 12:40 → Y3N 15:12
PROVIDERS: ADMIT Allergy & Immunology; ATTEND Allergy & Immunology
PROC: HZ2ZZZZ Detoxification Services for Substance Abuse Treatment (ICD-10-PCS; principal; 2020-07-29)
DX: F13.230 Sedative, hypnotic or anxiolytic dependence with withdrawal, uncomplicated (principal); F17.210 Nicotine dependence, cigarettes, uncomplicated; F31.9 Bipolar disorder, unspecified; F41.9 Anxiety disorder, unspecified; J44.9 Chronic obstructive pulmonary disease, unspecified; R25.1 Tremor, unspecified; R94.31 Abnormal electrocardiogram [ECG] [EKG]; E66.9 Obesity, unspecified; Z68.32 Body mass index [BMI] 32.0-32.9, adult; Z85.3 Personal history of malignant neoplasm of breast; Z90.12 Acquired absence of left breast and nipple; Z90.710 Acquired absence of both cervix and uterus; Z99.89 Dependence on other enabling machines and devices; T23.001A Burn of unspecified degree of right hand, unspecified site, initial encounter; X10.0XXA Contact with hot drinks, initial encounter; Y92.239 Unspecified place in hospital as the place of occurrence of the external cause; Y93.89 Activity, other specified; Y99.8 Other external cause status
CPT/HCPCS: 36415; 80053; 80164; 85027; 86780; 93005; 93010; C9803; J2794; U0003